=== PATIENT | male | born 1960 | race Caucasian/White ===

== ENCOUNTER 2017-04-08 14:03 | Emergency (ER) | payer SELFPAY ==
--- NOTE | 2017-04-08 14:42 | ER Document Report ---
ED Medical Screen (RME) - General Chief Complaint: Chest Pain Stated Complaint: CHEST PAIN Time Seen by Provider: 04/08/17 14:38 Notes: Patient says he is experiencing "pressure" in the front of his chest when he takes deep breaths or when he holds his breath. The symptoms began yesterday and are still present today. He does not have actual pain. Has not been sick recently. Denies cough or cold or chest congestion. No fevers. Patient has a rather extensive cardiac history, having had 3 heart attacks, multiple stents placed, as well as coronary bypass surgery. The only medication he currently takes is baby aspirin daily because he cannot afford to go to the doctor or by his medications. He smokes about 1 pack of cigarettes a day. TRAVEL OUTSIDE OF THE [place] IN LAST 30 DAYS: No - Related Data Allergies/Adverse Reactions: No Known Allergies Allergy (Unverified 04/08/17 14:03) Past Medical History - Social History Frequency of alcohol use: None Drug Abuse: None Renal/ Medical History: Denies: Hx Peritoneal Dialysis Physical Exam - Vital signs Vitals: Temp Pulse Resp BP Pulse Ox 98.2 F 92 21 H 130/74 H 94 04/08/17 14:14 04/08/17 14:14 04/08/17 14:14 04/08/17 14:14 04/08/17 14:14 Course - Vital Signs Vital signs: Temp Pulse Resp BP Pulse Ox 98.2 F 92 21 H 130/74 H 94 04/08/17 14:14 04/08/17 14:14 04/08/17 14:14 04/08/17 14:14 04/08/17 14:14
[2017-04-08 15:15] LABS: ABSOLUTE BASOPHILS # (AUTO) 0.1 10^3/uL (0.0-0.2); ABSOLUTE EOSINOPHILS # (AUTO) 0.1 10^3/uL (0.0-0.6); ABSOLUTE LYMPHOCYTES (AUTO) 2.8 10^3/uL (0.5-4.7); ABSOLUTE NEUT (AUTO) 7.8 10^3/uL (1.7-8.2); BASOPHILS % (AUTO) 0.7 % (0-2); EOSINOPHILS % (AUTO) 0.8 % (0-6); HEMATOCRIT 47.1 % (37.9-51.0); HEMOGLOBIN 16.6 g/dL (13.5-17.0); LYMPHOCYTES % (AUTO) 23.4 % (13-45); MEAN CORPUSCULAR HEMOGLOBIN 34.5 pg (27.0-33.4); MEAN CORPUSCULAR HGB CONC 35.2 g/dL (32.0-36.0); MEAN CORPUSCULAR VOLUME 98 fl (80-97); MONOCYTES % (AUTO) 8.5 % (3-13); PLATELET COUNT 188 10^3/uL (150-450); RED BLOOD COUNT 4.81 10^6/uL (4.35-5.55); SEGMENTED NEUTROPHILS % (AUTO) 66.6 % (42-78); TOTAL CELLS COUNTED % (AUTO) 100 %; WHITE BLOOD COUNT 11.8 10^3/uL (4.0-10.5)
[2017-04-08 15:26] LABS: ALANINE AMINOTRANSFERASE 43 U/L (21-72); ALBUMIN 4.4 g/dL (3.5-5.0); ALKALINE PHOSPHATASE 94 U/L (38-126); ANION GAP 10 (5-19); ASPARTATE AMINO TRANSFERASE 26 U/L (17-59); BILIRUBIN,DIRECT 0.4 mg/dL (0.0-0.4); BILIRUBIN,TOTAL 0.6 mg/dL (0.2-1.3); BLOOD UREA NITROGEN 10 mg/dL (7-20); CALCIUM 9.9 mg/dL (8.4-10.2); CARBON DIOXIDE 24 mmol/L (22-30); CHLORIDE 106 mmol/L (98-107); GLUCOSE 88 mg/dL (75-110); LIPASE 161.4 U/L (23-300); POTASSIUM 4.8 mmol/L (3.6-5.0); TOTAL PROTEIN 7.6 g/dL (6.3-8.2)
--- NOTE | 2017-04-08 15:27 | ER Document Report ---
ED Cardiac - General Chief Complaint: Chest Pain Stated Complaint: CHEST PAIN Time Seen by Provider: 04/08/17 14:38 Information source: Patient Notes: Patient is a 56-year-old male with past medical history 7 years ago of a cardiac bypass with stent placement. No cardiac problems since then. Patient denies any other history including a lack of high blood pressure or high cholesterol. Patient takes only baby aspirin daily. Patient does smoke and has a family history of coronary artery disease. Patient states yesterday he started to develop nonexertional chest discomfort in the substernal region. He states it was only when he took a deep breath. He states also some tenderness when he moves his torso from side to side. Patient denies any trauma to his chest. He denies any cough, fevers, runny nose, or congestion. Denies any calf pain, leg swelling, recent trips or travel. TRAVEL OUTSIDE OF THE [place] IN LAST 30 DAYS: No - HPI Patient complains to provider of: Chest pain Was the onset of pain: Gradual Is the pain a: New problem Chest pain location: Substernal Quality of pain: Intermittent, Dull, Other - See above Chest pain radiation location: None Severity now: None Severity at worst: Mild Pain level currently: Denies Chest pain precipitating factors: See above - See above Cardiac risk factors: Smoker, + Family history, Hx NM Positive cardiac history: Yes Associated symptoms: Other - See above Exacerbated by: Deep breaths Relieved by: Nothing Similar symptoms previously: Yes Recently seen / treated by doctor: No - Related Data Allergies/Adverse Reactions: No Known Allergies Allergy (Unverified 04/08/17 14:03) Past Medical History - General Information source: Patient - Social History Smoking Status: Current Every Day Smoker Cigarette use (# per day): No Chew tobacco use (# tins/day): No Smoking Education Provided: No Frequency of alcohol use: None Drug Abuse: None Family History: Reviewed & Not Pertinent Patient has suicidal ideation: No Patient has homicidal ideation: No Renal/ Medical History: Denies: Hx Peritoneal Dialysis Review of Systems - Review of Systems Constitutional: denies: Fever EENT: denies: Eye discharge, Nose discharge Cardiovascular: denies: Palpitations, Heart racing Respiratory: denies: Short of breath Gastrointestinal: denies: Vomiting Genitourinary: denies: Dysuria Musculoskeletal: denies: Leg swelling Skin: Other - no hives. denies: Rash Neurological/Psychological: Other - no slurred speech -: Yes All other systems reviewed and negative Physical Exam - Vital signs Vitals: Temp Pulse Resp BP Pulse Ox 98.2 F 92 21 H 130/74 H 94 04/08/17 14:14 04/08/17 14:14 04/08/17 14:14 04/08/17 14:14 04/08/17 14:14 Notes: Reviewed vital signs and nursing note as charted by RN. CONSTITUTIONAL: Alert and oriented and responds appropriately to questions. Well -appearing; well-nourished HEAD: Normocephalic; atraumatic CARD: Regular rate and rhythm; no murmurs, no clicks, no rubs, no gallops; symmetric distal pulses RESP: Normal chest excursion without splinting or tachypnea; breath sounds clear and equal bilaterally ABD/GI: Normal bowel sounds; non-distended; soft, non-tender to palpation of all 4 quadrants of the abdomen as well as the epigastric region; no rebound or guarding BACK: The back appears normal and is non-tender to palpation, there is no CVA tenderness EXT: Normal ROM in all joints; non-tender to palpation; no cyanosis, no effusions, no edema SKIN: No acute lesions noted NEURO: Moves all extremities equally; Motor and sensory function intact PSYCH: The patient's mood and manner are appropriate. Grooming and personal hygiene are appropriate. Course - Re-evaluation Re-evalutation: 04/08/17 15:23 Given the history, physical, patient stating that the pain is when he takes a deep breath, or moves his torso from side to side, starting yesterday, with no increased intensity today, I will obtain basic labs, troponin, EKG, and a d- dimer. I do believe dissection to be unlikely. Given the history as above, this is also not completely congruent with ACS. Given that the symptoms have been persistently intermittent since yesterday, I do not believe a repeat troponin will be necessary if the initial troponin is unremarkable. EKG shows a heart rate of 93, normal sinus rhythm, normal axis, no obvious ST elevation or depression Patient's heart score is a 3. Pt's MACE risk is 0.9-1.7%. 04/08/17 16:57 CT scan of the chest shows no obvious pulmonary embolism. 04/08/17 17:49 Patient's initial troponin and laboratory work as recorded. CT scan of the chest was unremarkable. Patient has had no pain here in the emergency department. I have had a long talk with the patient about allowing me to have a repeat troponin drawn at this time. He will allow. He is just indicated to me that he also started lifting weights again 2 days ago. If the pain is pleuritic secondary to a musculoskeletal etiology, this would be congruent also with this history. If the repeat troponin does not increase, the patient would like to go home. I do believe given the above history and physical, that this is a reasonable option. 04/08/17 18:24 Troponin is as recorded. Patient still looks excellent. Patient will be discharged home with strict return precautions and follow-up. - Vital Signs Vital signs: Temp Pulse Resp BP Pulse Ox 98.2 F 92 19 121/62 95 04/08/17 14:14 04/08/17 14:14 04/08/17 17:01 04/08/17 17:01 04/08/17 17:01 - Laboratory Result Diagrams: 04/08/17 14:55 04/08/17 14:55 Laboratory results interpreted by me: 04/08/17 04/08/17 14:55 14:55 WBC 11.8 H MCV 98 H MCH 34.5 H D-Dimer 0.74 H Discharge - Discharge Clinical Impression: Atypical chest pain, Pleurisy Condition: Good Disposition: HOME, SELF-CARE Additional Instructions: Come back immediately with any return of pain, any shortness of breath, leg swelling, fevers, vomiting, weakness or numbness, or any other acute problems. 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 Referrals: SONA JUDD MD [[email or web address]] - Follow up as needed
--- NOTE | 2017-04-08 15:35 | EKG REPORT ---
SEVERITY:- NORMAL ECG - SINUS RHYTHM : Confirmed by: Ras Aguilar MD 08-Apr-2017 15:34:57
--- NOTE | 2017-04-08 15:35 | RADIOLOGY REPORT (SQ) ---
EXAM DESCRIPTION: CHEST PA/LAT COMPLETED DATE/TIME: 04/08/2017 3:27 pm REASON FOR STUDY: Anterior chest pain COMPARISON: None. EXAM PARAMETERS: NUMBER OF VIEWS: two views TECHNIQUE: Digital Frontal and Lateral radiographic views of the chest acquired. RADIATION DOSE: NA LIMITATIONS: none FINDINGS: LUNGS AND PLEURA: No opacities, masses or pneumothorax. No pleural effusion. MEDIASTINUM AND HILAR STRUCTURES: No masses or contour abnormalities. HEART AND VASCULAR STRUCTURES: Heart normal size. No evidence for failure. BONES: No acute findings. HARDWARE: Sternotomy wires. OTHER: No other significant finding. IMPRESSION: NO SIGNIFICANT RADIOGRAPHIC FINDING IN THE CHEST. TECHNICAL DOCUMENTATION: JOB ID: [id number] [employer]- All Rights Reserved Reading location - IP/workstation name: [email or web address]
[2017-04-08 15:38] LABS: CREATINE KINASE MB 0.63 ng/mL (<4.55); TROPONIN I 0.013 ng/mL
[2017-04-08 16:00] LABS: URINE AMPHETAMINES SCREEN NEGATIVE; URINE BARBITURATES SCREEN NEGATIVE; URINE BENZODIAZEPINES SCREEN NEGATIVE; URINE COCAINE SCREEN NEGATIVE; URINE MARIJUANA (THC) SCREEN NEGATIVE; URINE METHADONE SCREEN NEGATIVE; URINE PHENCYCLIDINE SCREEN NEGATIVE
--- NOTE | 2017-04-08 16:48 | RADIOLOGY REPORT (SQ) ---
EXAM DESCRIPTION: CTA CHEST COMPLETED DATE/TIME: 04/08/2017 4:31 pm REASON FOR STUDY: 2, pleuritic pain COMPARISON: None. TECHNIQUE: CT scan of the chest performed using helical scanning technique with dynamic intravenous contrast injection. Images reviewed with lung, soft tissue and bone windows. Reconstructed coronal and sagittal MPR images reviewed. Additional 3 dimensional post-processing performed to develop Maximal Intensity Projection images (VT P). All images stored on PACS. All CT scanners at this facility use dose modulation, iterative reconstruction, and/or weight based d osing when appropriate to reduce radiation dose to as low as reasonably achievable (ALARA). [facility]: Dose Right [facility]: CareDose [facility]: Dose Right [facility]: Teradose 4D [facility]: [employer] Systems CONTRAST TYPE AND DOSE: contrast/concentration: Isovue 370.00 mg/ml; Total Contrast Delivered: 155.0 ml; Total Saline Delivered: 151.0 ml Contrast bolus adequate for pulmonary arteries and aorta. RENAL FUNCTION: GFR > 60. RADIATION DOSE: CT Rad equipment meets quality standard of care and radiation dose reduction techniq ues were employed. CTDIvol: 9.9 - 33.1 mGy. DLP: 1817 mGy-cm. . LIMITATIONS: Motion. FINDINGS: LUNGS AND PLEURA: Chronic interstitial changes. Dependent atelectasis. No effusions. AORTA AND GREAT VESSELS: No aneurysm. Contrast bolus not optimized for the aorta. HEART: No pericardial effusion. Prior CABG. PULMONARY ARTERIES: No emboli visualized in the main pulmonary arteries or the segmental branches. HILAR AND MEDIASTINAL STRUCTURES: No identified masses or abnormal nodes. HARDWARE: None in the chest. UPPER ABDOMEN: Cirrhosis. Cholelithiasis. No ascites. THYROID AND OTHER SOFT TISSUES: No masses. No adenopathy. BONES: No acute or significant finding. 3D MIPS: Confirm above findings. OTHER: No other significant finding. IMPRESSION: No evidence of pulmonary embolus. No acute findings. COMMENT: Quality ID # [id number]: Final reports with documentation of one or more dose reduction techniques (e.g., Automated exposure control, adjustment of the mA and/or kV according to patient size, use of iterative reconstruction technique) TECHNICAL DOCUMENTATION: JOB ID: [id number] [employer]- All Rights Reserved Reading location - IP/workstation name: [email or web address]
[2017-04-08 18:43] VITALS: BP 123/98
== END 2017-04-08 18:40 | disposition home or self-care (01) ==
LOC: ER 14:03
DX: R07.89 Other chest pain (principal); R09.1 Pleurisy; F17.200 Nicotine dependence, unspecified, uncomplicated; Z95.1 Presence of aortocoronary bypass graft; Z79.82 Long term (current) use of aspirin
CPT/HCPCS: 36415; 71046; 71275; 80053; 80307; 82553; 83690; 84484; 85025; 85379; 93005; 93010; 99285